=== PATIENT | male | born 1995 | race Caucasian/White ===

== ENCOUNTER 2016-11-20 08:51 | Emergency (ER) | payer BC, OTHER ==
[2016-11-20 09:11] VITALS: BP 127/70
--- NOTE | 2016-11-20 11:39 | UC ---
FLU HPI - HPI Summary HPI Summary: TWO DAYS OF FEVER, NAUSEA, VOMITING LAST NIGHT, COUGH - History of Current Complaint Chief Complaint: UCGeneralIllness Stated Complaint: FLU SYMPTOMS Time Seen by Provider: 11/20/16 10:22 Hx Obtained From: Patient, Family/Manager College Onset/Duration: Sudden Onset, Lasting Days, Still Present Severity Currently: Moderate Severity Initially: Moderate Associated Signs & Symptoms: Positive: Fever, F/C, Cough, Sore Throat, Vomiting Related Hx: Possible Flu/Infectious Exposure - Allergy/Home Medications Allergies/Adverse Reactions: Allergies Allergy/AdvReac Type Severity Reaction Status Date / Time Cephalexin Allergy Severe Anaphylatic Verified 11/20/16 09:10 Shock Sulfa Drugs Allergy Severe Anaphylatic Verified 11/20/16 09:10 Shock PMH/Surg Hx/FS Hx/Imm Hx Previously Healthy: Yes Endocrine History Of: Denies: Diabetes, Thyroid Disease, Hyperthyroidism, Hypothyroidism Cardiovascular History Of: Denies: Cardiac Disorders, Hypertension, Pacemaker/ICD Respiratory History Of: Denies: COPD, Asthma GI/ History Of: Denies: Gastroesophageal Reflux, Ulcer, Renal Disease Neurological History Of: Denies: TIA, CVA, Dementia, Seizures Psychological History Of: Reports: Anxiety Denies: Depression Other History Of: Negative For: Anticoagulant Therapy - Surgical History Surgical History: None - Family History Known Family History: Positive: Other - FATHER HAS VIRAL BRONCHITIS - Social History Occupation: Employed Full-time Lives: With Family Alcohol Use: None Substance Use Type: None Smoking Status (MU): Light Every Day Tobacco Smoker Type: Cigarettes Amount Used/How Often: 1/2 PPD - Immunization History Most Recent Tetanus Shot: 2011 Vaccination Up to Date: Yes Review of Systems Constitutional: Fever, Chills, Fatigue Skin: Negative Eyes: Negative ENT: Negative Respiratory: Cough Cardiovascular: Negative Gastrointestinal: Vomiting Genitourinary: Negative Motor: Negative Neurovascular: Negative Musculoskeletal: Negative, Myalgia Neurological: Negative Psychological: Negative All Other Systems Reviewed And Are Negative: Yes Physical Exam Triage Information Reviewed: Yes Appearance: No Pain Distress, Ill-Appearing, Thin Vital Signs: Initial Vital Signs Temp 98.7 F 11/20/16 09:08 Pulse 87 11/20/16 09:08 Resp 20 11/20/16 09:08 BP 127/70 11/20/16 09:08 Pulse Ox 100 11/20/16 09:08 Vital Signs Reviewed: Yes Eye Exam: Normal ENT Exam: Normal ENT: Positive: Normal ENT inspection, Hearing grossly normal, Pharynx normal, TMs normal Dental Exam: Normal Neck exam: Normal Neck: Positive: Supple, Nontender, No Lymphadenopathy Respiratory Exam: Normal Respiratory: Positive: Chest non-tender, Lungs clear, Normal breath sounds, No respiratory distress, No accessory muscle use Cardiovascular Exam: Normal Cardiovascular: Positive: RRR, No Murmur, Pulses Normal Abdominal Exam: Normal Abdomen Description: Positive: Nontender, No Organomegaly Musculoskeletal Exam: Normal Musculoskeletal: Positive: Strength Intact, ROM Intact Neurological Exam: Normal Psychological Exam: Normal Psychological: Positive: Normal Response To Family Skin Exam: Normal Flu Course/Dx - Differential Dx/Diagnosis Differential Diagnosis/HQI/PQRI: Upper Respiratory Infection Provider Diagnoses: VIRAL SYNDROME Discharge - Discharge Plan Condition: Stable Disposition: HOME Patient Education Materials: Viral Syndrome (ED) Forms: *Work Release Referrals: [facility]IAN REFERRAL [Outside] No Primary Care Phys,NOPCP [Primary Care Provider] -
== END 2016-11-20 11:37 | disposition home or self-care (01) ==
LOC: UCEAST 08:51
DX: B34.9 Viral infection, unspecified (principal); R50.9 Fever, unspecified; R11.11 Vomiting without nausea; M79.1 Myalgia; Z88.1 Allergy status to other antibiotic agents; Z88.2 Allergy status to sulfonamides; F41.9 Anxiety disorder, unspecified; F17.210 Nicotine dependence, cigarettes, uncomplicated
CPT/HCPCS: 87502; 99211; G0463

== ENCOUNTER 2017-12-03 15:13 | Emergency (ER) | payer BC ==
--- NOTE | 2017-12-03 16:38 | RAD ---
INDICATION: Left index finger injury. TECHNIQUE: 3 views of the left index finger were obtained. FINDINGS: There is diffuse soft tissue swelling. There is a nondisplaced fracture of the tuft of the distal phalanx. Joint spaces appear maintained. IMPRESSION: NONDISPLACED FRACTURE OF THE TUFT OF THE DISTAL PHALANX.
[2017-12-03] MEDS ORDERED: Ibuprofen TAB* 600 MG PO ONE (17:40)
[2017-12-03 18:12] VITALS: BP 130/77
--- NOTE | 2017-12-03 21:55 | ED ---
Laceration/Wound HPI - HPI Summary HPI Summary: Patient is an otherwise healthy 21-year-old male who presents with a laceration to the left index finger after trauma from a car door. The laceration extends through the mid nail bed, which remains attached. Endorses 5 out of 10 pain, throbbing. Slight discoloration to the distal fingertip which is slightly ecchymotic. Denies any other injuries. Denies numbness, tingling, temperature changes. Unable to assess Refill. Bleeding is controlled on arrival and patient denies any blood thinners or other medications. He has not taken anything for relief. - History of Current Complaint Stated Complaint: LT FINGER INJURY Time Seen by Provider: 12/03/17 16:07 Hx Obtained From: Patient Mechanism of Injury: Sharp/Blunt Trauma Onset/Duration: Sudden Onset Aggravating: Movement Alleviating: Compression Timing: Constant Onset Severity: Mild Current Severity: Mild Pain Intensity: 0 Pain Scale Used: 0-10 Numeric Associated Signs & Symptoms: Negative Related Hx: Dominant Hand (Right) - Allergy/Home Medications Allergies/Adverse Reactions: Allergies Allergy/AdvReac Type Severity Reaction Status Date / Time MS Cephalexin [Cephalexin] Allergy Severe Anaphylatic Verified 12/03/17 16:07 Shock MS Sulfa Drugs [Sulfa Drugs] Allergy Severe Anaphylatic Verified 12/03/17 16:07 Shock Home Medications: Home Medications NK [No Home Medications Reported] 12/03/17 [History Confirmed 12/03/17] PMH/Surg Hx/FS Hx/Imm Hx Previously Healthy: Yes Endocrine/Hematology History: Denies: Hx Anticoagulant Therapy, Hx Diabetes, Hx Thyroid Disease, Other Endocrine/Hematological Disorders Cardiovascular History: Denies: Hx Hypercholesterolemia, Hx Hypertension, Hx Pacemaker/ICD, Hx Peripheral Vascular Disease, Other Cardiovascular Problems/Disorders Respiratory History: Denies: Hx Asthma, Hx Chronic Obstructive Pulmonary Disease (COPD), Other Respiratory Problems/Disorders GI History: Denies: Hx Ulcer, Other GI Disorders History: Denies: Hx Renal Disease, Other Problems/Disorders Musculoskeletal History: Denies: Hx Arthritis, Hx Osteoporosis, Other Musculoskeletal History Sensory History: Denies: Hx Cataracts, Hx Contacts or Glasses, Hx Glaucoma, Other Sensory Impairments Opthamlomology History: Denies: Hx Cataracts, Hx Contacts or Glasses, Hx Glaucoma, Other Sensory Impairments Neurological History: Reports: Hx Headaches, Other Neuro Impairments/Disorders - concussion during summer Denies: Hx Dementia, Hx Seizures, Hx Transient Ischemic Attacks (TIA) Psychiatric History: Reports: Hx Anxiety Denies: Hx Depression, Hx Substance Abuse, Other Psychiatric Issues/Disorders - Cancer History Cancer Type, Location and Year: tremors, headaches, concussion in may - Immunization History Hx Pertussis Vaccination: No Immunizations Up to Date: Unable to Obtain/Confirm Infectious Disease History: No Infectious Disease History: Denies: Hx Clostridium Difficile, Hx Hepatitis, Hx Human Immunodeficiency Virus (HIV), Traveled Outside the [place] in Last 30 Days - Family History Known Family History: Positive: Other - FATHER HAS VIRAL BRONCHITIS - Social History Occupation: Employed Full-time Alcohol Use: None Hx Substance Use: No Substance Use Type: Reports: None Hx Tobacco Use: No Smoking Status (MU): Light Every Day Tobacco Smoker Type: Cigarettes Amount Used/How Often: 1/2 PPD Review of Systems Constitutional: Negative Negative: Fever, Chills, Fatigue Eyes: Negative Cardiovascular: Negative Gastrointestinal: Negative Genitourinary: Negative Positive: no symptoms reported, see HPI Positive: Arthralgia - left index finger Skin: Negative Neurological: Negative All Other Systems Reviewed And Are Negative: Yes Physical Exam Triage Information Reviewed: Yes Vital Signs On Initial Exam: Initial Vitals Temp Pulse Resp BP Pulse Ox 98.9 F 83 20 145/75 99 12/03/17 15:22 12/03/17 15:22 12/03/17 15:22 12/03/17 15:22 12/03/17 15:22 Vital Signs Reviewed: Yes Appearance: Positive: Well-Appearing, Well-Nourished Skin: Positive: Warm, Skin Color Reflects Adequate Perfusion Head/Face: Positive: Normal Head/Face Inspection Eyes: Positive: EOMI, LILLIAN, Conjunctiva Clear Neck: Positive: Supple, No Lymphadenopathy Respiratory/Lung Sounds: Positive: Clear to Auscultation, Breath Sounds Present Cardiovascular: Positive: Normal, Pulses are Symmetrical in both Upper and Lower Extremities Musculoskeletal: Positive: Pain @ - Distal tip distal tip of the left index finger Neurological: Positive: Speech Normal Psychiatric: Positive: Affect/Mood Appropriate Diagnostics - Vital Signs Vital Signs Temp Pulse Resp BP Pulse Ox 12/03/17 18:11 99.0 F 73 16 130/77 99 12/03/17 15:22 98.9 F 83 20 145/75 99 - Laboratory Lab Statement: Any lab studies that have been ordered have been reviewed, and results considered in the medical decision making process. Laceration Repair Course/Dx - Course Course Of Treatment: Patient is evaluated for laceration to the left index finger extending through the nail bed. Upon evaluation, the wound does not appear to require sutures as the distal tip remains intact with edges appropriated well. X-ray obtained which shows:IMPRESSION: NONDISPLACED FRACTURE OF THE TUFT OF THE DISTAL PHALANX. I have advised keeping the area covered with triple antibiotic ointment and gauze 2 days and while working. Otherwise, patient will leave open to air to allow for faster healing time. Small piece of Surgicel applied to wound to help control any small amount of bleeding present, 2 gauze to the finger with good effect. Finger placed in splint with slight hyperextension. He is given orthopedic referral for any worsening symptoms, but understands he will leave splint on 3 weeks. He is given a note for work. Encouraged ibuprofen 600 mg 3 times daily for any swelling. He is able to ice the area for very small amounts at a time. He understands return precautions and voices no concerns at this time. - Clinical Impression Provider Diagnoses: Fracture of distal phalanx of finger Discharge - Discharge Plan Condition: Good Disposition: HOME Patient Education Materials: Finger Fracture (ED) Forms: *Work Release Referrals: No Primary Care Phys,NOPCP [Primary Care Provider] - Lacy Barnes MD [Medical Doctor] - Additional Instructions: Keep splint applied for 3 weeks I have given U and orthopedic referral for any worsening symptoms Ibuprofen 600 mg 3 times daily for any discomfort You may get the wound wet with soap and water daily Off work 2 days Light duty 3 weeks until the splint can be removed
== END 2017-12-03 18:11 | disposition home or self-care (01) ==
LOC: ED 15:13
DX: S62.661A Nondisplaced fracture of distal phalanx of left index finger, initial encounter for closed fracture (principal); S61.311A Laceration without foreign body of left index finger with damage to nail, initial encounter; W23.0XXA Caught, crushed, jammed, or pinched between moving objects, initial encounter; Y92.9 Unspecified place or not applicable; F17.210 Nicotine dependence, cigarettes, uncomplicated; Z88.3 Allergy status to other anti-infective agents; Z88.2 Allergy status to sulfonamides
CPT/HCPCS: 73140; 99282; A9270-GY

== ENCOUNTER 2018-05-28 08:42 | Emergency (ER) | payer BC ==
[2018-05-28 08:55] VITALS: BP 137/89
--- NOTE | 2018-05-28 09:56 | UC ---
Respiratory Complaint HPI - HPI Summary HPI Summary: 5 days of cough, chest tightness and some post nasal drip sore throat - History of Current Complaint Chief Complaint: UCRespiratory Stated Complaint: COUGH CONGESTION Time Seen by Provider: 05/28/18 09:54 Hx Obtained From: Patient Onset/Duration: Sudden Onset, Lasting Days - 4-5, Still Present Timing: Constant Pain Intensity: 6 Pain Scale Used: 0-10 Numeric Character: Cough: Nonproductive Aggravating Factors: Nothing Alleviating Factors: Nothing Associated Signs And Symptoms: Positive: URI - Allergies/Home Medications Allergies/Adverse Reactions: Allergies Allergy/AdvReac Type Severity Reaction Status Date / Time cephalexin Allergy Anaphylatic Verified 05/28/18 08:51 Shock Sulfa (Sulfonamide Allergy Anaphylatic Verified 05/28/18 08:51 Antibiotics) Shock PMH/Surg Hx/FS Hx/Imm Hx Previously Healthy: Yes Other History Of: Negative For: Anticoagulant Therapy - Surgical History Surgical History: None - Family History Known Family History: Positive: Other - FATHER HAS VIRAL BRONCHITIS - Social History Occupation: Employed Full-time Lives: With Family Alcohol Use: Rare Substance Use Type: None Smoking Status (MU): Heavy Every Day Tobacco Smoker Type: Cigarettes Amount Used/How Often: 1 ppd Have You Smoked in the Last Year: Yes Cessation Counseling: Counseled 3+Min - 10 Min - Immunization History Most Recent Tetanus Shot: 2011 Vaccination Up to Date: Yes Review of Systems Constitutional: Chills, Fatigue Skin: Negative Eyes: Negative ENT: Sore Throat Respiratory: Cough Cardiovascular: Negative Gastrointestinal: Negative Genitourinary: Negative Motor: Negative Neurovascular: Negative Musculoskeletal: Negative Neurological: Negative Psychological: Negative Is Patient Immunocompromised?: No All Other Systems Reviewed And Are Negative: Yes Physical Exam Triage Information Reviewed: Yes Appearance: Well-Appearing, No Pain Distress, Well-Nourished Vital Signs: Initial Vital Signs Temp 100.5 F 05/28/18 08:51 Pulse 105 05/28/18 08:51 Resp 18 05/28/18 08:51 BP 137/89 05/28/18 08:51 Pulse Ox 97 05/28/18 08:51 Vital Signs Reviewed: Yes Eye Exam: Normal Eyes: Positive: Conjunctiva Clear ENT Exam: Normal ENT: Positive: Normal ENT inspection, Hearing grossly normal, Nasal congestion, TMs normal, Uvula midline. Negative: Pharynx normal, Trismus, Muffled voice, Hoarse voice, Dental tenderness, Sinus tenderness Dental Exam: Normal Neck exam: Normal Neck: Positive: Supple, Nontender, No Lymphadenopathy Respiratory Exam: Normal Respiratory: Positive: Chest non-tender, Lungs clear, Normal breath sounds, No respiratory distress, No accessory muscle use Cardiovascular Exam: Normal Cardiovascular: Positive: RRR, No Murmur, Pulses Normal, Brisk Capillary Refill Musculoskeletal Exam: Normal Musculoskeletal: Positive: Strength Intact, ROM Intact, No Edema Neurological Exam: Normal Neurological: Positive: Alert, Muscle Tone Normal Psychological Exam: Normal Psychological: Positive: Normal Response To Family Skin Exam: Normal UC Diagnostic Evaluation - Laboratory O2 Sat by Pulse Oximetry: 97 Respiratory Course/Dx - Course Course Of Treatment: patient will use albuterol and mucinex if no relief may add antibiodics, nicotine cesasation information follow with pcp prn - Differential Dx/Diagnosis Provider Diagnoses: nicotine dependent, acute bronchititis Discharge - Sign-Out/Discharge Documenting (check all that apply): Patient Departure - Discharge Plan Condition: Stable Disposition: HOME Prescriptions: Albuterol HFA INHALER* [Ventolin HFA Inhaler*] 2 puff INH Q4H PRN #1 mdi PRN Reason: cough/chest congestion wheeze Azithromycin TAB* [Zithromax TAB (Z-NISHANT) 250 mg #6 tabs] 2 tab PO .TODAY, THEN 1 DAILY #1 nishant Patient Education Materials: How to Stop Smoking (ED), How to Use a Metered- Dose Inhaler (ED), Acute Bronchitis (ED) Forms: *Work Release Referrals: Isadora Maldonado MD [Medical Doctor] - If Needed - Billing Disposition and Condition Condition: STABLE Disposition: Home
== END 2018-05-28 10:20 | disposition home or self-care (01) ==
LOC: UCEAST 08:42
DX: J20.9 Acute bronchitis, unspecified (principal); F17.210 Nicotine dependence, cigarettes, uncomplicated; Z88.2 Allergy status to sulfonamides
CPT/HCPCS: 99212; G0463

== ENCOUNTER 2018-12-23 16:06 | Emergency (ER) | payer BC ==
[2018-12-23 16:31] VITALS: BP 127/79
--- NOTE | 2018-12-23 16:38 | UC ---
Shoulder Pain HPI - HPI Summary HPI Summary: 23 yo male presents with right posterior shoulder pain. He is right handed. He tells me that he woke up this morning and noticed pain in the back of his right shoulder that was worse with movement. 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 He took a tylenol with no relief. Denies injury, numbness, or tingling. No SOB or chest pain. - History of Current Complaint Chief Complaint: UCUpperExtremity Stated Complaint: R SHOULDER INJURY Time Seen by Provider: 12/23/18 16:37 Hx Obtained From: Patient Onset/Duration: Sudden Onset Severity Initially: Moderate Severity Currently: Moderate Pain Intensity: 7 Pain Scale Used: 0-10 Numeric - Allergies/Home Medications Allergies/Adverse Reactions: Allergies Allergy/AdvReac Type Severity Reaction Status Date / Time cephalexin Allergy Anaphylatic Verified 12/23/18 16:32 Shock Sulfa (Sulfonamide Allergy Anaphylatic Verified 12/23/18 16:32 Antibiotics) Shock PMH/Surg Hx/FS Hx/Imm Hx Respiratory History: Asthma Other History Of: Negative For: Anticoagulant Therapy - Surgical History Surgical History: None - Family History Known Family History: Positive: None - Social History Occupation: Employed Full-time Lives: With Family Alcohol Use: Rare Substance Use Type: None Smoking Status (MU): Heavy Every Day Tobacco Smoker Type: Cigarettes Amount Used/How Often: 1 ppd Have You Smoked in the Last Year: Yes - Immunization History Most Recent Tetanus Shot: 2012 Vaccination Up to Date: Yes Review of Systems All Other Systems Reviewed And Are Negative: Yes Constitutional: Positive: Negative Skin: Positive: Negative Respiratory: Positive: Negative Cardiovascular: Positive: Negative Neurovascular: Positive: Negative Musculoskeletal: Positive: Other: - Right shoulder pain Neurological: Positive: Negative Psychological: Positive: Negative Physical Exam - Summary Physical Exam Summary: GENERAL: NAD. WDWN. No pain distress. SKIN: No rashes, sores, lesions, or open wounds. CHEST: No accessory muscle use. Breathing comfortably and in no distress. CV: Pulses intact radial and ulnar. Cap refill <2seconds MSK: RIGHT SHOULDER: Mild TTP at posterior shoulder area of teres major. FROM, but mild pain with flexion and extension. Strength 5/5 including poultry husbandman strength. No edema or obvious bony deformities. Negative apleys, empty can, barrios- gary, neer, sarah, and yergason tests. NEURO: Alert. Sensations intact C4-T1 PSYCH: Age appropriate behavior. Triage Information Reviewed: Yes Vital Signs: Initial Vital Signs Temp 99.8 F 12/23/18 16:27 Pulse 109 12/23/18 16:27 Resp 16 12/23/18 16:27 BP 127/79 12/23/18 16:27 Pulse Ox 98 12/23/18 16:27 Vital Signs Reviewed: Yes Shoulder Course/Dx - Course Course Of Treatment: Suspect muscle strain/spasm of right shoulder. Advised to apply heat and rest. Rx for naproxen and f/u with PCP if symptoms do not improve. - Differential Dx/Diagnosis Provider Diagnosis: Muscle strain Discharge - Sign-Out/Discharge Documenting (check all that apply): Patient Departure All imaging exams completed and their final reports reviewed: No Studies - Discharge Plan Condition: Stable Disposition: HOME Prescriptions: Naproxen [Naproxen 500 mg tab] 500 mg PO BID PRN #30 tablet PRN Reason: Pain Patient Education Materials: Muscle Spasm (ED) Forms: *Work Release Referrals: No Primary Care Phys,NOPCP [Primary Care Provider] - Additional Instructions: If you develop a fever, shortness of breath, chest pain, new or worsening symptoms - please call your PCP or go to the ED. 1) Rest and apply ice/heat to your area of pain - Billing Disposition and Condition Condition: STABLE Disposition: Home - Attestation Statements Provider Attestation: I was available for consult. This patient was seen by the [facility]. The patient was not presented to, seen by, or examined by me. -Loren
== END 2018-12-23 16:50 | disposition home or self-care (01) ==
LOC: UCEAST 16:06
DX: S46.911A Strain of unspecified muscle, fascia and tendon at shoulder and upper arm level, right arm, initial encounter (principal); F17.210 Nicotine dependence, cigarettes, uncomplicated; J45.909 Unspecified asthma, uncomplicated; Z88.2 Allergy status to sulfonamides; Z88.1 Allergy status to other antibiotic agents; X58.XXXA Exposure to other specified factors, initial encounter; Y92.9 Unspecified place or not applicable
CPT/HCPCS: 99212; G0463